=== PATIENT | female | born 1985 | race Caucasian/White ===

== ENCOUNTER 2016-06-09 05:32 | Emergency (ER) | payer BC ==
[~2016-06-09] VITALS: Ht 167.6 cm; Wt 59.0 kg
[2016-06-09 05:40] VITALS: BP 101/67
[2016-06-09] MEDS ORDERED: PROZAC20 MG ORAL (05:44)
--- NOTE | 2016-06-09 06:04 | Emergency Room Report ---
History of Present Illness General Chief Complaint: Head Injury Source: Patient Present Illness HPI Is a 31-year-old female with no past medical history. She presents with complaint of head injury. Around 7 hours ago, she jumped on the railing to slide down. She slipped and fell backward hit her head on the ground. She was about 5 feet up. She did not pass out. A little dizzy. This morning when she got up she fell again but did not hit her head. She was concerned as when she came in. Minimal pain. No nausea no vomiting. Allergies: Uncoded Allergies: CONTRASEPTIVE (Allergy, Unknown, 06/09/16) Patient History Past Medical History: none, see triage record, old chart reviewed Past Surgical History: none Pertinent Family History: none Social History: Denies: smoking Last Menstrual Period: 2 weeks ago Now: No Immunizations: other Reviewed Nursing Documentation: PMH: Agreed, PSxH: Agreed Nursing Documentation-PMH History Of Psychiatric Problem: Yes - ANXIETY Review of Systems Eye: Denies: blurred vision, eye pain ENT: Denies: ear pain, nose congestion, throat swelling Respiratory: Denies: cough, shortness of breath Cardiovascular: Denies: chest pain, palpitations Gastrointestinal: Denies: abdominal pain, diarrhea, nausea, vomiting Musculoskeletal: Denies: back pain, joint pain Skin: Denies: rash Neurological: Denies: headache, numbness Endocrine: Denies: increased thirst, increased urine Hematologic/Lymphatic: Denies: easy bruising All Other Systems: negative except mentioned in HPI Physical Exam Vital Signs Date Time Temp Pulse Resp B/P Pulse Ox O2 Delivery O2 Flow Rate FiO2 06/09/16 05:35 97.7 69 16 98/65 100 Room Air vitals normal Sp02 EP Interpretation: reviewed, normal General Appearance: well appearing, no apparent distress, alert Head: normocephalic, other - Abrasion and small hematoma to the occipital area. No laceration Eyes: bilateral eye EOMI, bilateral eye PERRL ENT: hearing grossly normal, normal pharynx Neck: full range of motion, supple, no meningismus Respiratory: chest non-tender, lungs clear, normal breath sounds Cardiovascular #1: regular rate, rhythm, no murmur Gastrointestinal: normal bowel sounds, non tender, no mass, no organomegaly, no bruit, non-distended Musculoskeletal: back normal, gait/station normal, normal range of motion Neurologic: alert, oriented x3 Psychiatric: mood/affect normal Skin: warm/dry Medical Decision Making Diagnostic Impression: Primary Impression: Acute head injury Qualified Codes: S09.90XA - Unspecified injury of head, initial encounter ER Course She presents with acute head injury. No bleeding or fracture. We'll discharge home. CT/MRI/US Diagnostic Results CT/MRI/US Diagnostic Results : Imaging Test Ordered: CT head Impression read by radiologist. Negative. Last Vital Signs Date Time Temp Pulse Resp B/P Pulse Ox O2 Delivery O2 Flow Rate FiO2 06/09/16 05:40 98.1 61 16 101/67 100 Room Air Status: improved Disposition: HOME, SELF-CARE Condition: Stable Patient Instructions: HEAD INJURY, No Wake-Up (Adult) Additional Instructions: followup with your DrGracie in 7 days. Return if worse. TOMAS AGUILAR M.D. Jun 09, 2016 06:04
[2016-06-09 06:20] VITALS: BP 103/69
--- NOTE | 2016-06-09 09:59 | Diagnostic Imaging Report ---
Indication: Head trauma Technique: Contiguous 5 mm thick transaxial imaging of the head obtained in a Siemens Sensation [address] scanner. Soft tissue and bone windows generated. Total Dose length Product (DLP): [address] Dose Index Volume (CTDIvol): 70.38 mGy Comparison: none Findings: The size and configuration of the cortical sulci, basal cisterns, and ventricles are within normal limits for age. There is no mass effect, midline shift, or edema identified. There is no evidence of acute hemorrhage or abnormal intra-axial or extra-axial fluid collections. The bones and soft tissues are unremarkable. Impression: No mass effect, edema or acute bleed. The CT scanner at [facility] is accredited by the [employer] and the scans are performed using protocols designed to limit radiation exposure to as low as reasonably achievable to attain images of sufficient resolution adequate for diagnostic evaluation.
== END 2016-06-09 06:20 | disposition home or self-care (01) ==
LOC: EMR 06:04
DX: S09.90XA Unspecified injury of head, initial encounter (principal); W17.89XA Other fall from one level to another, initial encounter; Y93.9 Activity, unspecified; Y92.9 Unspecified place or not applicable; R42 Dizziness and giddiness; Z86.59 Personal history of other mental and behavioral disorders
CPT/HCPCS: 70450; 99284

== ENCOUNTER 2017-01-13 17:40 | Emergency (ER) | payer BC, OTHER ==
[~2017-01-13] VITALS: Ht 167.6 cm; Wt 59.0 kg
[~2017-01-13 17:40] MED LIST: PROZAC20 MG ORAL
[2017-01-13 17:52] VITALS: BP 122/66
[2017-01-13] MEDS ORDERED: Dicyclomine HCl 10mg/5ml oral soln ORAL ONE (18:00)
[2017-01-13] MEDS ORDERED: Mylanta II UD 30ml ORAL ONE (18:00)
[2017-01-13] MEDS ORDERED: Lidocaine 2% Visc 15ml soln ORAL ONE (18:00)
[2017-01-13 19:00] VITALS: BP 120/68
--- NOTE | 2017-01-13 20:48 | Emergency Room Report ---
History of Present Illness General Chief Complaint: Abdominal Pain Source: Patient Present Illness HPI The patient is a 32-year-old female with a history of anxiety disorder presenting for abdominal pain which began this morning for no known reason. Pain is an 8/10 burning sensation primarily to the mid upper abdomen. She also admits to constipation over the past week. She states her wedding is in one week and she is feeling stressed. She denies any other symptoms including N, V, F, chills, SOB, CP, back pain, dysuria, vaginal DC Allergies: Uncoded Allergies: CONTRASEPTIVE (Allergy, Unknown, 06/09/16) Patient History Past Medical History: see triage record Pertinent Family History: none Last Menstrual Period: 12/25/16 Reviewed Nursing Documentation: PMH: Agreed, PSxH: Agreed Nursing Documentation-PMH Past Medical History: No History, Except For History Of Psychiatric Problem: Yes - Anxiety Review of Systems All Other Systems: negative except mentioned in HPI Physical Exam Vital Signs Date Time Temp Pulse Resp B/P (MAP) Pulse Ox O2 Delivery O2 Flow Rate FiO2 01/13/17 17:47 98.1 73 16 122/66 100 Room Air Sp02 EP Interpretation: reviewed, normal General Appearance: no apparent distress, alert, GCS 15, non-toxic Head: normocephalic, atraumatic Eyes: bilateral eye normal inspection, bilateral eye PERRL ENT: hearing grossly normal, normal pharynx, no angioedema, normal voice Neck: full range of motion, supple/symm/no masses Respiratory: chest non-tender, lungs clear, normal breath sounds, speaking full sentences Cardiovascular #1: regular rate, rhythm, no edema Gastrointestinal: no mass, non-distended, no guarding, tenderness - epigastric Genitourinary: normal inspection, no CVA tenderness Musculoskeletal: back normal, gait/station normal, normal range of motion, non- tender Neurologic: alert, oriented x3, responsive, motor strength/tone normal, sensory intact, speech normal Psychiatric: judgement/insight normal, memory normal, mood/affect normal, no suicidal/homicidal ideation Skin: normal color, no rash, warm/dry, well hydrated Medical Decision Making PA Attestation Dr. Mensah is my supervising physician. Patient management was discussed with my supervising physician Diagnostic Impression: Primary Impression: Abdominal pain Qualified Codes: R10.13 - Epigastric pain ER Course The patient is a 32-year-old female with a history of anxiety disorder presenting for abdominal pain Differential diagnoses considered include but not limited to gastritis, pancreatitis, appendicitis, , UTI, anxiety, among others Physical exam: Afebrile. Apparent distress There is tenderness to palpation over the epigastric region only. Abdomen is soft and nondistended. Normal bowel sounds Lab work is ordered and the patient is given a GI cocktail The patient has then become anxious and states that she does not want any testing done. I informed her that I am unable to confidently diagnose her without these tests. She understands and will sign out AMA She states that she is feeling better She will follow up with primary doctor. ER precautions are given Last Vital Signs Date Time Temp Pulse Resp B/P (MAP) Pulse Ox O2 Delivery O2 Flow Rate FiO2 01/13/17 19:00 98.1 75 16 120/68 100 Room Air Status: improved Disposition: AGAINST MEDICAL ADVICE Condition: Stable Referrals: NON PHYSICIAN (PCP) Patient Instructions: Abdominal Pain, Adult Additional Instructions: You chosen to leave AGAINST MEDICAL ADVICE understanding the risks associated with this including possibilty of LAUREEN CODY Jan 13, 2017 20:48
== END 2017-01-13 20:27 | disposition left against medical advice (07) ==
LOC: EMR 18:23
DX: R10.9 Unspecified abdominal pain (principal); R10.816 Epigastric abdominal tenderness
CPT/HCPCS: 96374; 96375; 99284; J2405

== ENCOUNTER 2017-06-28 23:04 | Emergency (ER) | payer OTHER ==
[~2017-06-28] VITALS: Ht 167.6 cm; Wt 59.0 kg
[2017-06-28 23:15] VITALS: BP 118/74
--- NOTE | 2017-06-28 23:21 | Emergency Room Report ---
History of Present Illness General Chief Complaint: Vomiting Source: Patient Present Illness HPI Is a 32-year-old female with no significant past medical history other than anxiety. She presents with chief complaint of vomiting. She said she had 8 drinks last night which is a lot for her. She felt nauseous this morning and on the way home from [place], she started vomiting. She's vomited multiple time the last 4 hours. [place] lightheaded and dizzy and weak. Also felt dehydrated. No fever or chills. Vomiting is nonbloody and non-bilious. No diarrhea. Abdominal cramping pain. No radiation. Allergies: Uncoded Allergies: CONTRASEPTIVE (Allergy, Unknown, 06/09/16) Patient History Past Medical History: see triage record, old chart reviewed Past Surgical History: none Pertinent Family History: none Social History: Denies: smoking Last Menstrual Period: "this week" Now: No Immunizations: other Reviewed Nursing Documentation: PMH: Agreed, PSxH: Agreed Review of Systems Eye: Denies: eye pain, blurred vision ENT: Denies: ear pain, nose congestion, throat swelling Respiratory: Denies: cough, shortness of breath Cardiovascular: Denies: chest pain, palpitations Gastrointestinal: Reports: abdominal pain, nausea, vomiting, Denies: diarrhea Musculoskeletal: Denies: back pain, joint pain Skin: Denies: rash Neurological: Denies: headache, numbness Endocrine: Denies: increased thirst, increased urine Hematologic/Lymphatic: Denies: easy bruising All Other Systems: negative except mentioned in HPI Physical Exam Vital Signs Date Time Temp Pulse Resp B/P (MAP) Pulse Ox O2 Delivery O2 Flow Rate FiO2 06/28/17 23:00 98.9 98 18 114/72 99 Room Air 99.0 vitals normal Sp02 EP Interpretation: reviewed, normal General Appearance: well appearing, no apparent distress, alert Head: normocephalic, atraumatic Eyes: bilateral eye PERRL, bilateral eye EOMI ENT: hearing grossly normal, normal pharynx Neck: full range of motion, supple, no meningismus Respiratory: chest non-tender, lungs clear, normal breath sounds Cardiovascular #1: regular rate, rhythm, no murmur Gastrointestinal: normal bowel sounds, non tender, no mass, no organomegaly, no bruit, non-distended Musculoskeletal: back normal, gait/station normal, normal range of motion Psychiatric: mood/affect normal Skin: warm/dry Medical Decision Making Diagnostic Impression: Primary Impression: Vomiting Qualified Codes: R11.2 - Nausea with vomiting, unspecified ER Course Patient with nausea vomiting may be secondary to alcohol. She is better here. She was extremely nervous about taking any medication that she had anaphylaxis from a previous medication before. No vomiting after 2 L of fluid. She is able to tolerate liquid here. We'll discharge home. Last Vital Signs Date Time Temp Pulse Resp B/P (MAP) Pulse Ox O2 Delivery O2 Flow Rate FiO2 06/28/17 23:00 98.9 98 18 114/72 99 Room Air 99.0 Status: improved Disposition: HOME, SELF-CARE Condition: Stable Patient Instructions: Nausea and Vomiting, Adult Additional Instructions: Follow-up with your doctor in 2-3 days if not better. Return if symptom worsen. TOMAS AGUILAR M.D. Jun 28, 2017 23:21
[2017-06-28 23:51] LABS: BASOPHILS % (AUTO) 0.6 % (0.0-2.0); EOSINOPHILS % (AUTO) 0.1 % (0.0-3.0); HEMATOCRIT 42.4 % (37.0-47.0); HEMOGLOBIN 14.7 G/DL (12.0-16.0); LYMPHOCYTES % (AUTO) 17.4 % (20.0-45.0); MEAN CORPUSCULAR VOLUME 92 FL (80-99); PLATELET COUNT 200 K/UL (150-450); RED BLOOD COUNT 4.62 M/UL (4.20-5.40); RED CELL DISTRIBUTION WIDTH 10.8 % (11.6-14.8); WHITE BLOOD COUNT 8.5 K/UL (4.8-10.8)
[2017-06-29 00:03] LABS: ANION GAP 15 mmol/L (5-15); BLOOD UREA NITROGEN 15 mg/dL (7-18); CALCIUM 9.6 MG/DL (8.5-10.1); CARBON DIOXIDE 23 MMOL/L (21-32); CHLORIDE 101 MMOL/L (98-107); CREATININE 0.9 MG/DL (0.55-1.30); POTASSIUM 4.1 MMOL/L (3.5-5.1); SODIUM 139 MMOL/L (136-145)
[2017-06-29 00:07] LABS: ALANINE AMINOTRANSFERASE 19 U/L (12-78); ALBUMIN 4.9 G/DL (3.4-5.0); ALBUMIN/GLOBULIN RATIO 1.4 (1.0-2.7); ALKALINE PHOSPHATASE 43 U/L (46-116); ASPARTATE AMINO TRANSFERASE 26 U/L (15-37); BILIRUBIN,TOTAL 0.5 MG/DL (0.2-1.0)
[2017-06-29 00:10] VITALS: BP 122/72
[2017-06-29 01:45] VITALS: BP 120/72
[2017-06-29 01:50] VITALS: BP 120/72
== END 2017-06-29 01:50 | disposition home or self-care (01) ==
LOC: EDBD 23:04 → EMR 06-29 01:50
DX: R11.2 Nausea with vomiting, unspecified (principal)
CPT/HCPCS: 36415; 80053; 83690; 85025; 96361; 96374; 99284; J2405